=== PATIENT | female | born 2000 | race African-American/Black ===

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

== ENCOUNTER 2018-01-07 10:41 | Emergency (ER) | payer OTHER ==
[~2018-01-07] VITALS: Ht 162.5 cm; Wt 104.3 kg
[~2018-01-07 10:41] MED LIST changes: +MOBIC15 MG PO
[2018-01-07] MEDS ORDERED: GUAIFENESIN-CO118 ML PO (12:39)
[2018-01-07 12:59] VITALS: BP 120/78
== END 2018-01-07 13:00 | disposition home or self-care (01) ==
LOC: ER 10:41
DX: J06.9 Acute upper respiratory infection, unspecified (principal); R50.9 Fever, unspecified

== ENCOUNTER 2018-08-17 17:05 | Emergency (ER) | payer OTHER ==
[~2018-08-17] VITALS: Ht 165.1 cm; Wt 99.8 kg
[~2018-08-17 17:05] MED LIST changes: +GUAIFENESIN-CO118 ML PO
[2018-08-17 17:20] LABS: URINE CLARITY CLOUDY; URINE COLOR STRAW; URINE SPECIFIC GRAVITY > 1.030 (1.005-1.035)
[2018-08-17 17:21] LABS: URINE BILIRUBIN NEGATIVE (Negative); URINE BLOOD 3+ (Negative); URINE GLUCOSE-RANDOM* NEGATIVE (Negative); URINE KETONES NEGATIVE (Negative); URINE LEUKOCYTES-REFLEX NEGATIVE (Negative); URINE NITRITE-REFLEX NEGATIVE (Negative); URINE PROTEIN (DIPSTICK) 1+ (Negative); URINE UROBILINOGEN 0.2 E.U./dl (0.2-1.0)
[2018-08-17 17:23] LABS: BACTERIA-REFLEX None Seen /HPF (None Seen); CASTS None Seen /LPF (None Seen); CRYSTALS None Seen /LPF (None Seen); MUCUS 4-6 Moderate strn/LPF (None Seen); SQUAMOUS 4-10 Moderate /LPF (0-3); URINE RBC >20 Many /HPF (0-2); URINE WBC-REFLEX >25 Many /HPF (0-5)
[2018-08-17] MEDS ORDERED: PYRIDIUM200 MG PO (17:38)
[2018-08-17] MEDS ORDERED: BACTRIM DS TAB1 EACH PO (17:38)
[2018-08-17 18:14] VITALS: BP 112/74
== END 2018-08-17 18:15 | disposition home or self-care (01) ==
LOC: ER 17:05
PROVIDERS: Physician Assistant
DX: N30.90 Cystitis, unspecified without hematuria (principal)

== ENCOUNTER 2018-09-08 13:34 | Emergency (ER) | payer OTHER ==
[~2018-09-08] VITALS: Ht 167.6 cm; Wt 90.7 kg
[2018-09-08 13:34] VITALS: BP 129/88
[~2018-09-08 13:34] MED LIST changes: +BACTRIM DS TAB1 EACH PO; +PYRIDIUM200 MG PO
[2018-09-08] MEDS ORDERED: PREDNISONE 20 M20 M1 PO (14:58)
[2018-09-08] MEDS ORDERED: CEPACOL SORE T1 EAC7 PO (14:58)
== END 2018-09-08 15:09 | disposition home or self-care (01) ==
LOC: ER 13:34
DX: J02.8 Acute pharyngitis due to other specified organisms (principal); B97.89 Other viral agents as the cause of diseases classified elsewhere; R09.81 Nasal congestion

== ENCOUNTER 2018-09-11 19:20 | Emergency (ER) | payer OTHER ==
[~2018-09-11] VITALS: Ht 167.6 cm; Wt 90.7 kg
[~2018-09-11 19:20] MED LIST changes: +CEPACOL SORE T1 EAC7 PO; +PREDNISONE 20 M20 M1 PO
[2018-09-11] MEDS ORDERED: ZPAK PO (21:06)
[2018-09-11 21:16] VITALS: BP 134/71
== END 2018-09-11 21:17 | disposition home or self-care (01) ==
LOC: ER 19:20
DX: J06.9 Acute upper respiratory infection, unspecified (principal); J32.9 Chronic sinusitis, unspecified; H65.93 Unspecified nonsuppurative otitis media, bilateral; J02.9 Acute pharyngitis, unspecified

== ENCOUNTER 2018-10-22 16:57 | Emergency (ER) | payer OTHER ==
[~2018-10-22] VITALS: Ht 175.3 cm; Wt 88.5 kg
[2018-10-22 16:57] VITALS: BP 106/78
[~2018-10-22 16:57] MED LIST changes: +ZPAK PO
[2018-10-22] MEDS ORDERED: MOBIC7.5 MG PO (17:38)
[2018-10-22] MEDS ORDERED: AMOXICILLIN 50500 MG PO (17:38)
== END 2018-10-22 17:45 | disposition home or self-care (01) ==
LOC: ER 16:57
DX: J02.0 Streptococcal pharyngitis (principal)

== ENCOUNTER 2018-12-25 19:44 | Emergency (ER) | payer OTHER ==
[~2018-12-25] VITALS: Ht 165.1 cm; Wt 104.3 kg
[~2018-12-25 19:44] MED LIST changes: +AMOXICILLIN 50500 MG PO; +MOBIC7.5 MG PO
[2018-12-25 20:05] LABS: URINE BILIRUBIN NEGATIVE (Negative); URINE BLOOD NEGATIVE (Negative); URINE CLARITY CLEAR; URINE COLOR YELLOW; URINE GLUCOSE-RANDOM* NEGATIVE (Negative); URINE KETONES NEGATIVE (Negative); URINE LEUKOCYTES-REFLEX TRACE (Negative); URINE NITRITE-REFLEX NEGATIVE (Negative); URINE PROTEIN (DIPSTICK) TRACE (Negative)
[2018-12-25] MEDS ORDERED: NOHOMEMEDICATIONS (21:04)
[2018-12-25 23:36] VITALS: BP 130/77
== END 2018-12-25 23:41 | disposition home or self-care (01) ==
LOC: ER 19:44
PROVIDERS: Emergency Medicine
DX: N72 Inflammatory disease of cervix uteri (principal)

== ENCOUNTER 2019-02-07 19:15 | Emergency (ER) | payer OTHER ==
[~2019-02-07] VITALS: Ht 165.1 cm; Wt 99.8 kg
[~2019-02-07 19:15] MED LIST changes: +NOHOMEMEDICATIONS
[2019-02-07 19:44] LABS: URINE BILIRUBIN NEGATIVE (Negative); URINE BLOOD 3+ (Negative); URINE COLOR YELLOW; URINE GLUCOSE-RANDOM* NEGATIVE (Negative); URINE KETONES NEGATIVE (Negative); URINE LEUKOCYTES-REFLEX TRACE (Negative); URINE NITRITE-REFLEX NEGATIVE (Negative); URINE PROTEIN (DIPSTICK) 1+ (Negative); URINE SPECIFIC GRAVITY >= 1.030 (1.005-1.035)
[2019-02-07 19:46] LABS: URINE CLARITY HAZY
[2019-02-07 19:49] LABS: SQUAMOUS 0-3 Few /LPF (0-3)
[2019-02-07 19:50] LABS: CASTS None Seen /LPF (None Seen); CRYSTALS None Seen /LPF (None Seen); URINE WBC-REFLEX >25 Many /HPF (0-5)
[2019-02-07] MEDS ORDERED: KEFLEX500 M1 PO (20:16)
[2019-02-07 20:37] VITALS: BP 119/61
== END 2019-02-07 20:27 | disposition home or self-care (01) ==
LOC: ER 19:15
PROVIDERS: Emergency Medicine
DX: N39.0 Urinary tract infection, site not specified (principal)

== ENCOUNTER 2019-03-07 13:35 | Emergency (ER) | payer OTHER ==
[~2019-03-07] VITALS: Ht 165.1 cm; Wt 104.3 kg
[~2019-03-07 13:35] MED LIST changes: +KEFLEX500 M1 PO
[2019-03-07 13:55] LABS: URINE BILIRUBIN NEGATIVE (Negative); URINE BLOOD 1+ (Negative); URINE CLARITY CLEAR; URINE COLOR YELLOW; URINE GLUCOSE-RANDOM* NEGATIVE (Negative); URINE KETONES NEGATIVE (Negative); URINE LEUKOCYTES-REFLEX TRACE (Negative); URINE PROTEIN (DIPSTICK) TRACE (Negative)
[2019-03-07 13:56] LABS: URINE NITRITE-REFLEX POSITIVE (Negative)
[2019-03-07 14:00] LABS: SQUAMOUS >10 Many /LPF (0-3)
[2019-03-07 14:01] LABS: CASTS None Seen /LPF (None Seen); CRYSTALS None Seen /LPF (None Seen); URINE RBC 0-2 Rare /HPF (0-2); URINE WBC-REFLEX 6-15 Few /HPF (0-5)
[2019-03-07 14:02] VITALS: BP 121/68
[2019-03-07] MEDS ORDERED: KEFLEX500 M1 PO (14:12)
[2019-03-07] MEDS ORDERED: PHENAZOPYRIDIN200 M2 PO (14:12)
[2019-03-07] MEDS ORDERED: MACROBID 100 M100 M1 PO (14:25)
== END 2019-03-07 14:25 | disposition home or self-care (01) ==
LOC: ER 13:35
PROVIDERS: Emergency Medicine
DX: N39.0 Urinary tract infection, site not specified (principal)

== ENCOUNTER 2019-06-14 13:20 | Emergency (ER) | payer OTHER ==
[~2019-06-14] VITALS: Ht 162.6 cm; Wt 81.7 kg
[~2019-06-14 13:20] MED LIST changes: +MACROBID 100 M100 M1 PO; +PHENAZOPYRIDIN200 M2 PO
[2019-06-14 14:35] VITALS: BP 120/77
[2019-06-14] MEDS ORDERED: TESSALON PERLE100 MG PO (14:37)
== END 2019-06-14 14:35 | disposition home or self-care (01) ==
LOC: ER 13:20
DX: J06.9 Acute upper respiratory infection, unspecified (principal)

== ENCOUNTER 2020-04-14 14:34 | Emergency (ER) | payer OTHER ==
[~2020-04-14] VITALS: Ht 167.6 cm; Wt 104.3 kg
[~2020-04-14 14:34] MED LIST changes: +TESSALON PERLE100 MG PO
[2020-04-14] MEDS ORDERED: MIRENA1 EACH INTRAUTERI (15:40)
[2020-04-14 15:47] LABS: ABSOLUTE NEUTROPHILS 5.4 thou/uL (1.4-8.2); BASOPHILS 0.5 % (0.0-2.0); EOSINOPHILS 0.5 % (0.0-3.0); HEMATOCRIT 40.9 % (37.0-47.0); LYMPHOCYTES 26.8 % (24.0-44.0); MCH 31.1 pg (26.0-34.0); MCHC 34.2 g/dL (28.0-37.0); MCV 91.1 fL (80.0-100.0); MONOCYTES 7.4 % (1.0-8.0); PLATELET COUNT 187 thou/uL (150-400); POLYS 64.8 % (36.0-66.0); RBC 4.48 mil/uL (4.20-5.00); RDW 12.4 % (10.5-14.5); WBC 8.3 thou/uL (4.0-11.0)
[2020-04-14 15:52] LABS: CALCIUM 8.7 mg/dL (8.5-10.1); CREATININE 0.7 mg/dL (0.6-1.0); POTASSIUM 3.9 mmol/L (3.5-5.1)
[2020-04-14 16:15] VITALS: BP 111/68
--- NOTE | 2020-04-14 16:42 | EKG ---
[facility] [place] [address] ELECTROCARDIOGRAM REPORT Name: MEDELLEAH Room #: REG [facility]#: [id number] Admission: 04/14/20 Attend Phys: Discharge: Date of : 89 Report #: [id number] THIS REPORT FOR: cc: MARCO Worley family physician/PCP MARCO Worley family physician/PCP Bart Harvey MD [facility] ~ THIS REPORT FOR: //name// [facility] ED Test Date: 2020-04-14 Test Time: 15:21:07 Pat Name: LEAH MEDEL Department: Room: Gender: F [employer]: linda : 2000 Requested By: Lewis Ch Order Number: [id number] MD: Bart Harvey Measurements Intervals [place] Rate: 76 P: 2 ND: 189 QRS: 12 QRSD: 98 T: 9 QT: 356 QTc: 401 Interpretive Statements Sinus rhythm Non specific ST-T changes No previous ECG available for comparison Electronically Signed On 04-14-2020 16:42:22 CDT by Bart Harvey [email or web address] <ELECTRONICALLY SIGNED> By: Bart Harvey MD, FACC 04/14/20 1642 1521 1521 Bart Harvey MD, FACC /EPI
== END 2020-04-14 17:10 | disposition home or self-care (01) ==
LOC: ER 14:34
PROVIDERS: Emergency Medicine
DX: R06.02 Shortness of breath (principal); R07.89 Other chest pain; Z79.899 Other long term (current) drug therapy

== ENCOUNTER 2021-03-15 08:41 | Emergency (ER) | payer OTHER ==
[~2021-03-15] VITALS: Ht 165.1 cm; Wt 86.2 kg
[~2021-03-15 08:41] MED LIST changes: +MIRENA1 EACH INTRAUTERI
[2021-03-15 10:29] VITALS: BP 124/75
== END 2021-03-15 10:35 | disposition home or self-care (01) ==
LOC: ER 08:41
PROVIDERS: Emergency Medicine
DX: J02.9 Acute pharyngitis, unspecified (principal); Z20.822 Contact with and (suspected) exposure to COVID-19

== ENCOUNTER 2021-03-30 14:16 | Emergency (ER) | payer OTHER ==
[~2021-03-30] VITALS: Ht 162.6 cm; Wt 95.3 kg
[2021-03-30 16:20] VITALS: BP 136/86
== END 2021-03-30 16:20 | disposition home or self-care (01) ==
LOC: ER 14:16
PROVIDERS: Emergency Medicine
DX: B00.1 Herpesviral vesicular dermatitis (principal); Z20.822 Contact with and (suspected) exposure to COVID-19

== ENCOUNTER 2021-05-20 14:41 | Emergency (ER) | payer OTHER ==
[~2021-05-20] VITALS: Ht 165.1 cm; Wt 86.2 kg
[2021-05-20 16:31] VITALS: BP 126/88
== END 2021-05-20 16:32 | disposition home or self-care (01) ==
LOC: ER 14:41
PROVIDERS: Nurse Practitioner Family
DX: N61.1 Abscess of the breast and nipple (principal); H61.23 Impacted cerumen, bilateral

== ENCOUNTER 2021-07-28 10:52 | Emergency (ER) | payer OTHER ==
[~2021-07-28] VITALS: Ht 167.6 cm; Wt 90.7 kg
[2021-07-28 10:52] VITALS: BP 155/90
[2021-07-28 11:40] LABS: URINE BILIRUBIN NEGATIVE (Negative); URINE BLOOD NEGATIVE (Negative); URINE CLARITY CLEAR; URINE COLOR YELLOW; URINE GLUCOSE-RANDOM* NEGATIVE (Negative); URINE KETONES NEGATIVE (Negative); URINE LEUKOCYTES-REFLEX TRACE (Negative); URINE NITRITE-REFLEX NEGATIVE (Negative); URINE PROTEIN (DIPSTICK) NEGATIVE (Negative); URINE UROBILINOGEN 0.2 E.U./dl (0.2-1.0)
== END 2021-07-28 12:23 | disposition home or self-care (01) ==
LOC: ER 10:52
PROVIDERS: Emergency Medicine
DX: U07.1 COVID-19 (principal)